=== PATIENT | female | born 1970 | race Native Hawaiian/Other Pacific Islander ===

== ENCOUNTER 2017-01-27 15:21 | Emergency (ER) | payer OTHER ==
[~2017-01-27] VITALS: Ht 162.6 cm; Wt 70.3 kg
[2017-01-27 15:25] VITALS: TEMP 98.4
[2017-01-27 16:25] VITALS: BP 136/94
[2017-01-27 16:34] LABS: PLATELET COUNT 364 K/uL (152-353)
[2017-01-28] MEDS ORDERED: LORTAB 5-325 MG1 TAB PO (02:47)
== END 2017-01-27 17:30 | disposition home or self-care (01) ==
LOC: ED 15:21
DX: J44.1 Chronic obstructive pulmonary disease with (acute) exacerbation (principal); J20.9 Acute bronchitis, unspecified; J44.0 Chronic obstructive pulmonary disease with (acute) lower respiratory infection
CPT/HCPCS: 36415; 85027; 87804; 99283; J1100

== ENCOUNTER 2017-01-27 20:38 | Observation (INO) | payer OTHER ==
[~2017-01-27] VITALS: Ht 162.6 cm; Wt 72.6 kg
[2017-01-27 20:52] VITALS: BP 150/93; TEMP 98.9
[2017-01-27 22:32] LABS: POTASSIUM 3.2 mmol/L (3.6-5.2); SODIUM 136 mmol/L (136-145)
[2017-01-28 01:00] VITALS: BP 131/79; TEMP 98.2; Ht 162.6 cm; Wt 72.6 kg
--- NOTE | 2017-01-28 02:37 | NUR ---
01/27/17 2340: RECEIVED PT FROM ER BY WHEELCHAIR TO ROOM 1109. PT ACCOMPANIED BY FAMILY MEMBERS. PT BEING ADMITTED WITH COPD AND BRONCHITIS.
[2017-01-28] MEDS ORDERED: LORTAB 5-325 MG1 TAB PO (02:47)
[2017-01-28 04:00] VITALS: BP 98/58; TEMP 97.9
[2017-01-28 05:44] LABS: PLATELET COUNT 353 K/uL (152-353)
[2017-01-28 05:50] LABS: POTASSIUM 3.6 mmol/L (3.6-5.2)
[2017-01-28 08:00] VITALS: BP 126/77; TEMP 97.5
--- NOTE | 2017-01-28 10:45 | NUR ---
IV D/C'D. D/C INSTRUCTIONS GIVEN. PT INSTURCTED TO MAKE FU WITH PCP. PT HAS NO FUTHER QUESIONS. NAD NOTED.
== END 2017-01-28 10:45 | disposition home or self-care (01) ==
LOC: ED 20:38 → MED/SURG 22:51
PROVIDERS: ADMIT Specialist
DX: J44.0 Chronic obstructive pulmonary disease with (acute) lower respiratory infection (principal); J20.9 Acute bronchitis, unspecified; E87.6 Hypokalemia
CPT/HCPCS: 36415; 80048; 80053; 82805; 83735; 85027; 87070; 87077; 87185; 87186; 87205; 87804; 94640; 94664; 94760; 96367; 96374; 96375; 96376; 99220; 99283; 99284; G0378; J1100; J2060; J2405; J2550; J2930

== ENCOUNTER 2017-09-19 17:09 | Emergency (ER) | payer OTHER ==
[~2017-09-19] VITALS: Ht 162.6 cm; Wt 65.8 kg
[~2017-09-19 17:09] MED LIST: LORTAB 5-325 MG1 TAB PO
[2017-09-19 17:14] VITALS: TEMP 98.8
[2017-09-19 18:04] LABS: PLATELET COUNT 315 K/uL (152-353)
[2017-09-19 18:35] VITALS: BP 128/89
== END 2017-09-19 18:36 | disposition home or self-care (01) ==
LOC: ED 17:09
DX: R05 Cough (principal)
CPT/HCPCS: 80053; 81000; 85027; 99283; J2405

== ENCOUNTER 2018-09-11 16:50 | Emergency (ER) | payer OTHER ==
[~2018-09-11] VITALS: Ht 162.6 cm; Wt 69.9 kg
[2018-09-11 18:58] VITALS: BP 139/86; TEMP 98.9
== END 2018-09-11 19:00 | disposition home or self-care (01) ==
LOC: ED 16:50
DX: L25.9 Unspecified contact dermatitis, unspecified cause (principal)
CPT/HCPCS: 96372; 99283; J2930; Q0177

== ENCOUNTER 2019-09-09 17:50 | Emergency (ER) | payer OTHER ==
[~2019-09-09] VITALS: Ht 162.6 cm; Wt 69.9 kg
[2019-09-09 19:42] LABS: PLATELET COUNT 318 K/uL (152-353)
[2019-09-09 19:53] LABS: SODIUM 137 mmol/L (136-145)
[2019-09-09 20:25] VITALS: BP 121/73; TEMP 98.5
== END 2019-09-09 20:25 | disposition home or self-care (01) ==
LOC: ED 17:50
PROVIDERS: Emergency Medicine
DX: J40 Bronchitis, not specified as acute or chronic (principal); J06.9 Acute upper respiratory infection, unspecified
CPT/HCPCS: 36415; 80053; 82550; 82553; 83605; 84484; 85027; 87502; 87651; 93005; 99283

== ENCOUNTER 2020-04-19 17:08 | Emergency (ER) | payer OTHER ==
[~2020-04-19] VITALS: Ht 162.6 cm; Wt 69.9 kg
[2020-04-19 18:45] VITALS: BP 147/89; TEMP 98.7
== END 2020-04-19 22:06 | disposition home or self-care (01) ==
LOC: ED 17:08
DX: S93.491A Sprain of other ligament of right ankle, initial encounter (principal); S90.32XA Contusion of left foot, initial encounter; W18.39XA Other fall on same level, initial encounter; Y92.098 Other place in other non-institutional residence as the place of occurrence of the external cause
CPT/HCPCS: 99283

== ENCOUNTER 2022-07-02 16:20 | Emergency (ER) | payer OTHER ==
[~2022-07-02] VITALS: Ht 162.6 cm; Wt 88.0 kg
[2022-07-02 16:58] VITALS: BP 146/97; TEMP 98.7
[2022-07-02 17:12] LABS: PLATELET COUNT 384 K/uL (152-353)
[2022-07-02 17:20] LABS: POTASSIUM 3.7 mmol/L (3.6-5.2)
== END 2022-07-02 17:54 | disposition left against medical advice (07) ==
LOC: ED 16:20
PROVIDERS: Emergency Medicine
DX: R07.89 Other chest pain (principal); J44.9 Chronic obstructive pulmonary disease, unspecified; R06.2 Wheezing; F17.210 Nicotine dependence, cigarettes, uncomplicated; Z79.899 Other long term (current) drug therapy; Z53.29 Procedure and treatment not carried out because of patient's decision for other reasons
CPT/HCPCS: 36415; 80053; 80307; 81002; 83880; 84484; 85027; 93005; 94664; 99284